=== PATIENT | male | born 1980 | race Caucasian/White ===

== ENCOUNTER 2017-03-24 18:24 | Emergency (ER) | payer OTHER ==
[~2017-03-24 18:24] MED LIST: AUGMENTIN 875-1 EACH PO
== END 2017-03-24 22:33 | disposition home or self-care (01) ==
LOC: ER1 18:24
DX: I16.0 Hypertensive urgency (principal); I10 Essential (primary) hypertension; Z79.899 Other long term (current) drug therapy
CPT/HCPCS: 99283

== ENCOUNTER 2017-03-24 22:49 | Emergency (ER) | payer OTHER ==
[2017-03-25 02:30] LABS: HEMOGLOBIN 13.2 gm/dl (14.0-17.5); RED BLOOD COUNT 4.96 M/UL (4.20-5.50); WHITE BLOOD COUNT 10.2 K/UL (4.5-11.0)
[2017-03-25 02:51] LABS: BUN/CREATININE RATIO 24 (0-10)
== END 2017-03-25 04:29 | disposition home or self-care (01) ==
LOC: ER1 22:49
PROVIDERS: Family Medicine
DX: R04.0 Epistaxis (principal); I10 Essential (primary) hypertension; H81.399 Other peripheral vertigo, unspecified ear; F17.210 Nicotine dependence, cigarettes, uncomplicated
CPT/HCPCS: 36415; 71010; 80053; 82550; 82553; 82962; 83874; 84484; 85025; 93005; 99284

== ENCOUNTER → 2022-07-24 | Outpatient (CLI) | payer BC ==
[~2022-07-24] MED LIST changes: +HYDROCHLOROTHIA25 MG PO; +NORVASC 5 MG TAB5 MG PO
== END ==
LOC: KOH-I 15:57
DX: R06.02 Shortness of breath (principal); R91.8 Other nonspecific abnormal finding of lung field
CPT/HCPCS: 71046

== ENCOUNTER 2022-08-04 09:54 | Inpatient (IN) | payer BC ==
[~2022-08-04] VITALS: Ht 167.6 cm; Wt 200.9 kg
[2022-08-04 11:03] LABS: HEMOGLOBIN 13.2 gm/dl (14.0-17.5); RED BLOOD COUNT 5.45 M/UL (4.20-5.50); WHITE BLOOD COUNT 9.4 K/UL (4.5-11.0)
[2022-08-04] MEDS ORDERED: HYDRALAZINE HCL25 MG PO (16:00)
[2022-08-04] MEDS ORDERED: BENZONATATE100 MG PO (16:00)
[2022-08-04] MEDS ORDERED: PROTONIX20 MG PO (16:01)
[2022-08-04] MEDS ORDERED: POTASSIUM CHLO10 MEQ PO (16:01)
[2022-08-04] MEDS ORDERED: LISINOPRIL40 MG PO (16:01)
[2022-08-04] MEDS ORDERED: FUROSEMIDE20 MG PO (16:02)
[2022-08-04] MEDS ORDERED: SIMVASTATIN20 MG PO (16:02)
[2022-08-05 08:27] LABS: BUN/CREATININE RATIO 15 (0-10)
[2022-08-05 08:48] LABS: HEMOGLOBIN 12.5 gm/dl (14.0-17.5); RED BLOOD COUNT 5.31 M/UL (4.20-5.50); WHITE BLOOD COUNT 7.4 K/UL (4.5-11.0)
--- NOTE | 2022-08-06 11:40 | NUR ---
PATIENT ROOM AIR SATURATION 86%
[2022-08-06] MEDS ORDERED: CARVEDILOL25 MG PO (14:33)
[2022-08-06] MEDS ORDERED: HYDRALAZINE HCL50 MG PO (14:36)
[2022-08-06] MEDS ORDERED: LASIX40 MG PO (14:36)
== END 2022-08-06 17:00 | disposition home or self-care (01) | DRG 291 ==
LOC: ER1 09:54 → PROG CARE 12:10 → CDU 12:10 → CCU 08-05 09:50 → PROG CARE 08-06 05:46
PROVIDERS: Physician Assistant; Physician Assistant Medical; ADMIT Internal Medicine
PROC: 5A09357 Assistance with Respiratory Ventilation, Less than 24 Consecutive Hours, Continuous Positive Airway Pressure (ICD-10-PCS; 2022-08-04)
PROC: 5A09357 Assistance with Respiratory Ventilation, Less than 24 Consecutive Hours, Continuous Positive Airway Pressure (ICD-10-PCS; 2022-08-04)
PROC: B24BZZZ Ultrasonography of Heart with Aorta (ICD-10-PCS; principal; 2022-08-05)
DX: I13.0 Hypertensive heart and chronic kidney disease with heart failure and stage 1 through stage 4 chronic kidney disease, or unspecified chronic kidney disease (principal); Z20.822 Contact with and (suspected) exposure to COVID-19; I50.33 Acute on chronic diastolic (congestive) heart failure; J96.21 Acute and chronic respiratory failure with hypoxia; J96.22 Acute and chronic respiratory failure with hypercapnia; E66.2 Morbid (severe) obesity with alveolar hypoventilation; Z68.45 Body mass index [BMI] 70 or greater, adult; N17.9 Acute kidney failure, unspecified; E11.22 Type 2 diabetes mellitus with diabetic chronic kidney disease; N18.9 Chronic kidney disease, unspecified; J45.909 Unspecified asthma, uncomplicated; Z82.49 Family history of ischemic heart disease and other diseases of the circulatory system; Z99.81 Dependence on supplemental oxygen; Z90.49 Acquired absence of other specified parts of digestive tract; Z79.4 Long term (current) use of insulin
CPT/HCPCS: ECHO; 36600; 71045; 80048; 80053; 81001; 82550; 82553; 82803; 82962; 83605; 83735; 83880; 84439; 84443; 84484; 85025; 85027; 85379; 87040; 93005; 93306; 94660; 94760; 99285; J0360; J1940; Q9957; U0002